=== PATIENT | female | born 1975 | race Caucasian/White ===

== ENCOUNTER → 2024-05-13 23:14 | Day surgery (SDC) | payer OTHER, SELFPAY ==
[2024-05-13 21:03] VITALS: BP 171/107
[2024-05-13 21:43] VITALS: BMI 30.7
--- NOTE | 2024-05-13 21:45 | ED.GENMED ---
History of Present Illness
General
Chief Complaint: Esophageal Problem
Source: patient
Exam Limitations: none
Time Seen by Provider: 05/13/24 21:21
Nursing documentation reviewed up to this point in time: agreed with
Travel History
Have you had any contact with someone who has COVID-19?: No
Do you have any symptoms of coronavirus? Fever > 100 degrees, chills, cough, shortness of breath, sore throat, loss of taste or smell, muscle aches, or headache?: No
History of Present Illness
History of Present Illness:
Patient presents to ED secondary to persistent sensation of food being stuck, which occurred while having steak for dinner this evening. Since then, patient has had difficult time even drinking water. Patient over the years, has had similar
symptoms in the past, including September 2023, when she was evaluated emergency department. Patient states that she was given medication through the IV and subsequently threw up, alleviating her symptoms. Denies trouble breathing. Denies nausea
sensation. Denies fever.
Review of Systems
Review of Systems
Allergies reviewed?: Yes
All Other Systems: ROS reviewed and negative except as documented in HPI and ROS
Constitutional: Reports no symptoms
EENT: Reports no symptoms
Respiratory: Reports no symptoms
Cardiac: Reports no symptoms
ABD/GI: Reports other (food stuck in throat)
Musculoskeletal: Reports no symptoms
Skin: Reports no symptoms
Neurological: Reports no symptoms
Phy Exam
Physical Exam
Physical Exam:
Physical Exam
General: no apparent distress, not acutely ill. afebrile
Head: nc/at. eomi
Neck: supple. normal range of motion
Lungs: no acute respiratory distress. clear bilaterally
Abdomen: normal bowel sounds. not tender.
Neuro: alert and oriented. no focal neurological deficits
Skin: no rash
Psychiatric: well kept. interactive and cooperative
Extremities: no edema. no calf tenderness.
Course
Orders/Labs/Results
Orders:
Orders
05/13/24 21:40
Glucagon [GlucaGen] 1 mg IV NOW STA
05/13/24 22:29
Glycopyrrolate [Robinul] 0.2 mg .ROUTE .STK-MED ONE
Lidocaine 2% Mpf [Xylocaine Mpf 2%] 100 mg .ROUTE .STK-MED ONE
Phenylephrine HCl/0.9% NaCl [Wilver-Synephrine] 1,000 mcg .ROUTE .STK-MED ONE
Rocuronium [place] [Rocuronium] 50 mg .ROUTE .STK-MED ONE
Succinylcholine Chloride [Succinylcholine] 200 mg .ROUTE .STK-MED ONE
Sugammadex Sodium [Bridion] 400 mg .ROUTE .STK-MED ONE
05/13/24 22:30
Lidocaine 2% Mpf [Xylocaine Mpf 2%] 100 mg .ROUTE .STK-MED ONE
Propofol [Diprivan] 20 ml .ROUTE .STK-MED
Vital Signs
Initial and Last Documented VS:
Initial Vital Signs
Pulse Resp BP Pulse Ox
78 16 171/107 97
05/13/24 21:03 05/13/24 21:03 05/13/24 21:03 05/13/24 21:03
Last Documented Vital Signs
Temp Pulse Resp BP Pulse Ox
98 F 76 14 136/74 98
05/14/24 00:15 05/14/24 00:35 05/14/24 00:35 05/14/24 00:35 05/14/24 00:35
MDM/Problems Addressed
MDM/Problems Addressed:
Pt given glucagon without improvement in symptoms.
Discussed with oncall GI physician, Milton, who will come and evaluate the patient.
Pt will be transferred to GI Lab for endoscopy.
*Critical Care Note
Total Time (30-74mins, 75-104mins- exclusive of procedures): Not Applicable
ED Attending Note
-
Portions of this chart may have been created with voice recognition software.� Occasional wrong word or��sound alike� substitutions may have occurred due to the inherent limitations of voice recognition software.
Discharge Plan
Departure
Patient Disposition: GI LAB
Date of Disposition: 05/13/24
Time of Disposition: 22:06
Presentation/result/management discussed w/ accepting MD/DO:
Discharge Problem:
Food impaction of esophagus
Interventions
Interventions:
*Risk Screen - Suicide Last Done: 05/13/24 21:03
*General Assessment Last Done: 05/13/24 21:03
*Neglect/Abuse Screening Last Done: 05/13/24 21:03
ED- Fall Risk Assessment Last Done: 05/13/24 21:38
*ED COVID-19 Vaccine History Last Done: 05/13/24 21:38
*Nursing Disposition Last Done: 05/13/24 23:05
NR-Xmevld-Kpcxohlezu Assessment Last Done: 05/13/24 21:38
ED-EENT Assessment Last Done: 05/13/24 21:38
Discharge Date and Time
Discharge Date/Time: 05/13/24 23:05
[2024-05-13] MEDS: GlucaGen 1 MG IV (21:50)
--- NOTE | 2024-05-13 22:45 | CON.GI ---
Consultation
-
Date/Time Consultation Requested: 05/13/2024
Date/Time Consultation Performed: 05/13/2024
Requesting Provider: ED
Performing Provider: Mary CHOUDHARY
Reason for Consultation: Food bolus
Medical History
Chief Complaint / HPI
Chief Complaint: food impaction
History of Present Illness:
48-year-old female with past medical history of anxiety is here complaining of food bolus being stuck in her chest after eating steak tonight. Similar episode happened back in October 2023. Evaluated in ED at that time and was given glucagon
with resolution of symptoms. Did not follow up with GI or never had EGD. Currently unable to tolerate water or secretion. Denies any chest pain or shortness of breath or nausea or vomiting
Past Medical History
Past Medical History: Other (anxiety )
Past Surgical History: None
Family History
Family History: Reviewed & Not Pertinent
Allergies / Home Medications
Allergy/AdvReac Type Severity Reaction Status Date / Time
meperidine [From Demerol] Allergy Unknown Verified 01/08/24 13:35
Review of Systems
-
All other systems: A 12 pt ROS was Negative except as stated above in HPI
Vital Signs
Pulse Resp BP Pulse Ox
78 16 171/107 97
05/13/24 21:03 05/13/24 21:03 05/13/24 21:03 05/13/24 21:03
Physical Exam
Exam
General: Well Developed
Respiratory: Clear
GI: Soft, Non Tender, Non Distended and Normal Bowel Sounds
Neuro: AO x 3
Results
Diagnostic Image Results:
Prior GI Procedures:
EGD:
Colonoscopy:
Assessment / Plan
-
48-year-old female with past medical history of anxiety admitted with food impaction after eating steak tonight. Similar episode back in 10/2023-symptomatic improvement after IV glucagon at that time.no follow up EGD. intermittent dysphagia for
last 1 year.
Food impaction
plan
NPO
Urgent EGD
Total Time Spent with Patient (in minutes): 55
-
-
Thank you for consultation and allowing me to participate in the patient's care. Please call the christ[facility] education director GI physician during the after hours with any questions or concerns.
[2024-05-13 23:00] VITALS: BP 152/90
[2024-05-13 23:49] VITALS: BP 136/80; BP 152/90
[2024-05-14] VITALS: BP 143/74
[2024-05-14 00:15] VITALS: BP 143/79; BP 158/86
[2024-05-14 00:19] VITALS: BP 158/86
[2024-05-14 00:25] VITALS: BP 138/75
[2024-05-14 00:35] VITALS: BP 136/74
== END ==
LOC: EMR 20:58 → GI 23:14
PROVIDERS: ATTENDING PHYSICIAN Internal Medicine Gastroenterology; EMERGENCY PHYSICIAN Emergency Medicine; FAMILY PHYSICIAN Family Medicine
DX: T18.128A Food in esophagus causing other injury, initial encounter (principal); W44.F3XA Food entering into or through a natural orifice, initial encounter; T18.2XXA Foreign body in stomach, initial encounter; K22.89 Other specified disease of esophagus; K20.90 Esophagitis, unspecified without bleeding
CPT/HCPCS: 43247; 43239; 88305; 96374; 99284; J1610

== ENCOUNTER 2025-02-20 06:19 | Day surgery (SDC) | payer OTHER, SELFPAY | END 2025-02-20 11:36 | disposition home health service (06) | LOC: GI 06:19 | PROVIDERS: ATTENDING PHYSICIAN Internal Medicine Gastroenterology | DX: R13.10 Dysphagia, unspecified (principal); K31.7 Polyp of stomach and duodenum; K22.2 Esophageal obstruction; K22.89 Other specified disease of esophagus; K29.70 Gastritis, unspecified, without bleeding | CPT/HCPCS: 43249; 43239; 88305; 88342 ==